=== PATIENT | female | born 1960 | race American Indian/Alaskan Native ===

== ENCOUNTER 2017-08-06 20:26 | Inpatient (IN) | payer MEDICAID ==
[~2017-08-06 20:26] MED LIST: ADRENALIN ONE; INTROPIN DRIP 800 MG/D5W 250 ML IV ONE
[2017-08-06] MEDS: LEVOPHED DRIP 4 MG/NS 250 ML 4 MG/250 ML BAG IV SCH (20:35)
[2017-08-06] MEDS ORDERED: LEVOPHED DRIP 4 MG/NS 250 ML 4 MG/250 ML BAG IV ONE ×2 (20:45→23:27)
[2017-08-06] MEDS ORDERED: VASELINE LIP THERAPY TP PRN (20:50)
--- NOTE | 2017-08-06 21:15 | Emergency Department Report ---
HPI - General Time Seen by Provider: 08/06/17 20:48 - HPI HPI: 56-year-old [place] female presents to the emergency department via EMS from home and cardiac arrest. The patient had just completed radiation therapy today around 5 or 6 PM for her breast cancer. Her daughter got her something to eat and then some dessert and then brought her home. She appeared weak when they arrived to the house so they helped her into a chair and then pulled the chair into the house. Allegedly the patient asked for something to drink and was taking small sips when all of a sudden she started appearing short of breath and went unresponsive. The family was calling EMS and says "it took a while." EMS says that they got the patient about 20-25 minutes prior to presentation to [address] [place] [address] emergency Department. At that time she was in [facility]. They did ACLS protocol including 2 rounds of epinephrine, one of sodium bicarbonate, chest compressions, and the patient was intubated. ED Past Medical Hx - Medications Home Medications: Home Medications Medication Instructions Recorded Confirmed Last Taken Type Anastrozole (Nf) [Arimidex (Nf)] 1 mg PO DAILY 08/07/17 08/07/17 Unknown History Calcium Carbonate/Vitamin D3 1 each PO DAILY 08/07/17 08/07/17 Unknown History [Calcium 600-Vit D3 400 Tablet] Citalopram [celeXA] 10 mg PO QDAY 08/07/17 08/07/17 Unknown History Magnesium 250 mg PO BID 08/07/17 08/07/17 Unknown History Metaxalone [Skelaxin] 800 mg PO QDAY PRN 08/07/17 08/07/17 Unknown History Mirtazapine [Remeron] 15 mg PO HS 08/07/17 08/07/17 Unknown History metroNIDAZOLE [Flagyl] 500 mg PO QDAY 08/07/17 08/07/17 Unknown History traMADol [Ultram] 50 mg PO Q8H PRN 08/07/17 08/07/17 Unknown History ED Review of Systems ROS: Stated complaint: CARDIAC ARREST Other details as noted in HPI Comment: Unobtainable due to pts medical conditions Physical Exam - Physical Exam Physical Exam: GENERAL: Patient is ill-appearing and unresponsive. HENT: Normocephalic. Atraumatic. Patient has moist mucous membranes. There is a ET tube and tube engel in place. EYES: Pupils are fixed and dilated. NECK: Supple. Trachea appears midline. CHEST/LUNGS: There are no spontaneous respirations. There is good chest rise with bag valve ventilation. HEART/CARDIOVASCULAR: There are no spontaneous heart sounds. ABDOMEN: Abdomen is soft. There appears to be some mild abdominal distention. SKIN: Skin is cool but dry. There is an area to the left breast that appears like a ulcerating and fungating mass with very mild purulent appearing discharge. NEURO: Unresponsive. Does not withdraw to painful stimuli. Does not follow any commands. MUSCULOSKELETAL: There is no obvious deformity. There is no evidence of acute injury. No palpable femoral or radial pulses. ED Course - Reevaluation(s) Reevaluation #1: The patient arrived to the emergency department we continued ACLS protocol. She was given a dose of epinephrine as we continued chest compressions. She was placed on the monitor. After about 3 minutes a pulse check and rhythm check was done and the patient appeared to be in sinus rhythm with a palpable femoral pulse. At this point the patient had a low blood pressure on the monitor so dopamine was started while I placed a central line. Once the central line was finished the patient was switched to Levophed. We have just obtained a chest x-ray and blood. Family has been updated and understand she is still critical. 08/06/17 21:16 - ABG Interpretation Ph: [phone] PCO2: 39 PO2: 138 Bicarbonate: 11 Interpretation: metabolic alkalosis, other (lactic acidosis) - Central Line Placement Right Femoral Consent Obtained: emergent situation Patient Placed on Monitor/Pulse Ox: Yes MD Prep: mask, gown, gloves Central Line Prep: Chlorhexidine scrub, sterile drapes applied Ultrasound Used for Placement: No Central Line Lumen Inserted: triple Bloods Obtained for Lab: Yes Central Line Position: good blood return, all ports aspirated, flus, sutured in place with nyl Dressing Applied: Tegaderm, sterile gauze/tape Patient Tolerated Procedure: well Complications: none ED Medical Decision Making - Lab Data Result diagrams: 08/07/17 08:47 08/07/17 17:34 - EKG Data -: EKG Interpreted by Me EKG shows normal: sinus rhythm, axis, intervals, QRS complexes (q waves to septal leads), ST-T waves Rate: tachycardia (102 bpm) - EKG Data When compared to previous EKG there are: previous EKG unavailable Interpretation: other (sinus tachycardia at 102 bpm, Q waves to the septal leads.) - Radiology Data Radiology results: report reviewed, image reviewed interpreted by me: Chest x-ray shows that the ET tube is slightly deep and starting to go towards the right mainstem bronchus. Otherwise the lungs are inflated without any obvious signs of pneumonia or pleural effusions. EXAM: CT HEAD/BRAIN WO CON HISTORY: Unresponsive history of breast cancer TECHNIQUE: Contiguous axial images of the head were obtained without the use of intravenous contrast. PRIORS: none. FINDINGS: There a permeative mass infiltrating the left frontal bone extending into the extra-axial space and scalp. It measures 3.7 cm in AP dimension. There is a large area of low attenuation in the right cerebellar hemisphere. In the there is no evidence of acute intracranial hemorrhage. The ventricles and sulci are prominent consistent with generalized loss of brain substance, greater than expected for age. There is deep white matter lucency consistent with a mild degree of chronic microvascular ischemic disease. There is fluid in the bilateral sphenoid sinuses. The paranasal sinuses were not completely scanned. IMPRESSION: 1. Infiltrative mass in the left frontal bone causing a permeative pattern and extending into the left extra-axial space and overlying scalp. This is concerning for a neoplasm and may be metastatic breast cancer. 2. Low-attenuation lesion in the right cerebellum also suspicious for a mass with surrounding edema. 3. Generalized loss of brain substance greater than expected for age 4. Mild degree of chronic microvascular ischemic disease Further evaluation with MRI without and with contrast is recommended. I gave a verbal report by phone to Dr. Hilliard at 1 a.m. eastern daylight time. Transcribed By: ANIYA Dictated By: SERAFIN FERREIRA MD Electronically Authenticated By: SERAFIN FERREIRA MD Signed Date/Time: 08/07/17 0107 - Medical Decision Making Patient presented to the emergency department as a cardiac arrest. We got return of spontaneous circulation after one round of ACLS in the emergency department, after multiple rounds had been done in route and prior to presentation. The patient started having some hypotension so I placed a central line in the right femoral vein and she was started on pressors. As the labs started to come back, she was found to have a hemoglobin of 6.3 so 2 units of packed red blood cells were ordered. At first the patient needed vasopressin , dopamine and Levophed but when the blood was being transfused the blood pressure seemed to stabilize and we are able to titrate down some of the pressors. The rest of the labs still showed some abnormalities. She has a 23, 000 white count with a left shift, lactic acidosis of 13 that has trended down to 10, renal insufficiency, hyperkalemia with potassium of 6.1 and she has a very elevated d-dimer. Blood cultures were obtained and the patient was treated empirically with some antibiotics. For the hyperkalemia, the patient got insulin, glucose and Kayexalate. Chest x-ray did not show any pneumonia or any other acute processes. CT scan of the head shows concern for infiltrate of left frontal bone mass per meeting and extending into the left frontal space that is concerning for metastatic bony cancer. The patient will be admitted to the ICU for further evaluation and treatment and has been accepted for admission by the hospitalist, Dr Zurita. There has been multiple different family members throughout the evening that have been bedside and I have attempted to update them along the way to the results of the labs, imaging and the plan. - Differential Diagnosis malignancy, [place], PE, sepsis, hypoxemia Critical Care Time: Yes Critical care time in (mins) excluding proc time.: 45 Critical care attestation.: If time is entered above; I have spent that time in minutes in the direct care of this critically ill patient, excluding procedure time. Critical care time spent on this patient and doing her initial evaluation, supervision of ACLS protocol, multiple re-evaluations, ordering and interpretation of labs and imaging, titration of pressors, ordering and administration of medication, discussion with the patient's family. This is independent from and does not include the time spent doing the central line procedure. Critical Care Time: 45 minutes ED Disposition Clinical Impression: Cardiac arrest, Hyperkalemia, Renal insufficiency, Lactic acidosis Breast cancer metastasized to bone Qualifiers: Laterality: unspecified laterality Qualified Code(s): C50.919 - Malignant neoplasm of unspecified site of unspecified female breast Hypotension Qualifiers: Hypotension type: unspecified hypotension type Qualified Code(s): I95.9 - Hypotension, unspecified Leukocytosis Qualifiers: Leukocytosis type: unspecified Qualified Code(s): D72.829 - Elevated white blood cell count, unspecified Anemia Qualifiers: Anemia type: unspecified type Qualified Code(s): D64.9 - Anemia, unspecified Disposition: DC-09 OP ADMIT IP TO THIS HOSP Is pt being admited?: Yes Condition: Critical Time of Disposition: 01:50
[2017-08-06 21:29] LABS: INR 1.33 (0.87-1.13)
[2017-08-06 21:30] LABS: Partial Thromboplastin Time 49.4 Sec. (24.2-36.6)
[2017-08-06 21:32] LABS: Mean Corpuscular HGB Conc 27 % (30-34); Mean Corpuscular Hemoglobin 27 pg (28-32); Mean Corpuscular Volume 98 fl (79-97); Platelet Count 583 K/mm3 (140-440); Red Blood Count 2.36 M/mm3 (3.65-5.03); Red Cell Distribution Width 18.5 % (13.2-15.2)
[2017-08-06 21:33] LABS: Hematocrit 23.1 % (30.3-42.9); Hemoglobin 6.3 gm/dl (10.1-14.3)
[2017-08-06] MEDS ORDERED: NACL 0.9% 1000 ML 1,000 ML IV ONE (21:33)
[2017-08-06 21:38] LABS: Bilirubin,Urine Negative (Negative); Blood,Urine Negative (Negative); Color,Urine Yellow (Yellow); Urobilinogen,Urine < 2.0 mg/dL (<2.0)
[2017-08-06 21:39] LABS: RBC,Urine < 1.0 /HPF (0.0-6.0); WBC,Urine < 1.0 /HPF (0.0-6.0)
[2017-08-06] MEDS ORDERED: NACL 0.9% 500 ML 500 ML IV ONE (21:43)
--- NOTE | 2017-08-06 21:47 | XRay Report ---
FINAL REPORT EXAM: XR CHEST 1V AP HISTORY: ETT placement TECHNIQUE: AP portable view of the chest. PRIORS: None. FINDINGS: There is endotracheal tube in place with the tip in the proximal right mainstem bronchus. There is an NG tube in place with the tip in the stomach. The side port is at the GE junction. The cardiomediastinal silhouette appears normal. The lungs are hypo aerated and there is mild bibasilar subsegmental atelectasis. The bones and soft tissues are unremarkable. IMPRESSION: 1. Endotracheal tube tip is in the proximal right mainstem bronchus 2. NG tube tip is in the stomach and the side port is at the GE junction. Recommend advancement. 3. The lungs are hypo aerated and there is mild bibasilar subsegmental atelectasis I gave a verbal report by phone to Dr. Hilliard at 9:40 p.m. eastern daylight time. He informed me that the endotracheal tube had been repositioned.
[2017-08-06 22:03] LABS: Amphetamine Screen,Urine PRESUMPTIVE NEGATIVE; Benzodiazepines Screen,Urine PRESUMPTIVE NEGATIVE; Cannabinoid Screen,Urine PRESUMPTIVE NEGATIVE; Cocaine Screen,Urine PRESUMPTIVE NEGATIVE; Methadone Screen,Urine PRESUMPTIVE NEGATIVE; Opiate Screen,Urine PRESUMPTIVE NEGATIVE
[2017-08-06 22:05] LABS: Basophils % (Manual) 0 % (0.0-1.8); Eosinophils % (Manual) 0 % (0.0-4.3); Total Cells Counted 100
[2017-08-06 22:06] LABS: Platelet Estimate Consistent w Auto
[2017-08-06 22:07] LABS: Anisocytosis 1+; Poikilocytosis 1+
[2017-08-06 22:33] LABS: Albumin 2.3 g/dL (3.9-5); Calcium 7.9 mg/dL (8.4-10.2)
[2017-08-06] MEDS: Vasostrict 20 UNIT in NACL 0.9% 100 ML IV SCH (22:45)
[2017-08-06] MEDS ORDERED: HumuLIN R IV ONE (22:49)
[2017-08-06] MEDS ORDERED: D50W (25GM) Syringe IV ONE (22:49)
[2017-08-06] MEDS ORDERED: KIONEX PO ONE (22:49)
[2017-08-06] MEDS ORDERED: ZOSYN/NS 4.5GM/100ML 4.5 GM/100 ML VIAL IV ONE (23:00)
[2017-08-06] MEDS ORDERED: CALCIUM GLUCONATE 1,000 MG in NACL 0.9% 100 ML IV ONE (23:00)
[2017-08-06] MEDS ORDERED: INTROPIN DRIP 800 MG/D5W 250 ML 800 MG/250 ML BAG IV ONE (23:54)
[2017-08-07] MEDS ORDERED: fentaNYL DRIP Premix 2,000 MCG/100 ML BAG IV SCH (01:00)
--- NOTE | 2017-08-07 01:12 | Cat Scan Report ---
FINAL REPORT EXAM: CT HEAD/BRAIN WO CON HISTORY: Unresponsive history of breast cancer TECHNIQUE: Contiguous axial images of the head were obtained without the use of intravenous contrast. PRIORS: none. FINDINGS: There a permeative mass infiltrating the left frontal bone extending into the extra-axial space and scalp. It measures 3.7 cm in AP dimension. There is a large area of low attenuation in the right cerebellar hemisphere. In the there is no evidence of acute intracranial hemorrhage. The ventricles and sulci are prominent consistent with generalized loss of brain substance, greater than expected for age. There is deep white matter lucency consistent with a mild degree of chronic microvascular ischemic disease. There is fluid in the bilateral sphenoid sinuses. The paranasal sinuses were not completely scanned. IMPRESSION: 1. Infiltrative mass in the left frontal bone causing a permeative pattern and extending into the left extra-axial space and overlying scalp. This is concerning for a neoplasm and may be metastatic breast cancer. 2. Low-attenuation lesion in the right cerebellum also suspicious for a mass with surrounding edema. 3. Generalized loss of brain substance greater than expected for age 4. Mild degree of chronic microvascular ischemic disease Further evaluation with MRI without and with contrast is recommended. I gave a verbal report by phone to Dr. Hilliard at 1 a.m. eastern daylight time.
[2017-08-07] MEDS ORDERED: ZOFRAN IV PRN (01:57)
[2017-08-07] MEDS ORDERED: TYLENOL PO PRN (01:57)
[2017-08-07] MEDS ORDERED: NACL 0.9% 1000 ML 1,000 ML IV ONE (01:57)
[2017-08-07] MEDS ORDERED: TYLENOL PR PRN (01:57)
[2017-08-07] MEDS ORDERED: SODIUM CHLORIDE FLUSH SYRINGE 10 ML IV PRN (01:57)
[2017-08-07] MEDS ORDERED: NACL 0.9% 1000 ML 1,000 ML IV SCH (02:00)
[2017-08-07] MEDS ORDERED: VANCOMYCIN PHARMACY TO DOSE IV SCH (02:00)
[2017-08-07] MEDS ORDERED: VANCOMYCIN/NS 1 GM/250 ML 1 GM/250 ML BAG IV SCH (02:00)
[2017-08-07] MEDS ORDERED: SODIUM BICARBONATE IV ONE ×2 (02:09→02:14)
[2017-08-07] MEDS ORDERED: NACL 0.9% 1000 ML 1,000 ML ONE (02:13)
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
[2017-08-07] MEDS ORDERED: VANCOMYCIN 1,500 MG in NACL 0.9% 500 ML 500 ML IV ONE (03:00)
[2017-08-07 03:12] LABS: Creatine Kinase MB 16.9 ng/mL (0.0-4.0)
[2017-08-07] MEDS: ARTIFICIAL TEARS OPHTH OINT OU PRN ×2 (03:49→19:57)
--- NOTE | 2017-08-07 07:05 | Cat Scan Report ---
FINAL REPORT EXAM: CT ABDOMEN PELVIS WO CON HISTORY: abd distension, arf , important history of metastatic breast cancer TECHNIQUE: CT images obtained through the Abdomen and Pelvis without contrast. Transaxial,coronal and sagittal reformats are provided. PRIORS: None. FINDINGS: Imaged intrathoracic contents are remarkable for bilateral pulmonary edema, patchy ground-glass and consolidative airspace disease and focal right lower lung airspace disease with air bronchograms. Kidneys are normal in size, axis and position. No hydroureteronephrosis. There is a 2 millimeter nonobstructive stone in the left lower collecting system. The urinary bladder is decompressed with a Keenan catheter. Anteverted uterus. Multiple pelvic phleboliths. Large volume of abdominal and pelvic ascites. Extensive omental and suggested peritoneal nodularity. Lobular contour of the liver. Anterior right hepatic low-density 6 millimeter probably benign cysts. Additional right hepatic low-density lesions are too small to characterize as well. No calcified gallstones with moderate gallbladder distension and layering is sludge. Thickening of the adrenal glands without focal nodularity. With the exception of adjacent ascites, the pancreas and spleen demonstrate an unremarkable noncontrast appearance. Hollow enteric organs are normal in course and caliber. There is fluid throughout much of the colon. No evident obstruction. The appendix is not visualized. No pneumoperitoneum. Aorta is normal in course and caliber. A right femoral line is present. Superficial soft tissues are unremarkable. Sclerotic metastatic lesions are present throughout the pelvis, lumbar spine and sacrum and scattered to a lesser degree within the thoracic spine. IMPRESSION: Sequela of metastatic disease include numerous sclerotic lesions in the axial skeleton and a large volume of abdominal and pelvic ascites with nodularity of the peritoneum and omentum. The patient is at increased risk for bowel ischemia, and there is fluid throughout much of the colon. Correlation with serum lactate and patient's symptoms is requested. No pneumoperitoneum or bowel obstruction identified. Partially imaged lungs demonstrate diffuse patchy airspace disease, pulmonary edema and focal right lower lung consolidation, which may be sequela of infection or metastatic disease. Notification initiated via Kevin support representative immediately following this dictation on 08/07/2017.
--- NOTE | 2017-08-07 07:27 | XRay Report ---
AP CHEST: HISTORY: Endotracheal tube There is poor inspiration. An endotracheal tube terminates within 1 cm of the alicia. This is unchanged since 08/06/17 at 2103 hrs. A nasogastric tube terminates in the proximal stomach just beyond the GE junction. Bilateral perihilar infiltrates have developed since yesterday's exam. This could represent pulmonary edema, infectious infiltrates or areas of atelectasis due to the very poor inspiration. Heart size is grossly normal. Cardiac defibrillator pads overlie the chest. IMPRESSION: Limited exam with very poor inspiration. The endotracheal tube terminates within 1 cm of the alicia. Bilateral perihilar opacities have developed, please see above.
[2017-08-07 08:01] LABS: Creatine Kinase MB 30.3 ng/mL (0.0-4.0)
[2017-08-07] MEDS: PEPCID IV SCH ×2 (08:43→10:44)
[2017-08-07 08:55] LABS: Hematocrit 34.1 % (30.3-42.9); Hemoglobin 10.8 gm/dl (10.1-14.3); Mean Corpuscular HGB Conc 32 % (30-34); Mean Corpuscular Hemoglobin 27 pg (28-32); Mean Corpuscular Volume 85 fl (79-97); Platelet Count 389 K/mm3 (140-440); Red Blood Count 4.02 M/mm3 (3.65-5.03); Red Cell Distribution Width 18.4 % (13.2-15.2)
[2017-08-07 09:09] LABS: Calcium 6.6 mg/dL (8.4-10.2)
[2017-08-07] MEDS ORDERED: HumuLIN R IV STA ×2 (09:34→18:17)
[2017-08-07] MEDS ORDERED: D50W (25GM) Vial IV STA ×2 (09:34→18:18)
--- NOTE | 2017-08-07 09:34 | Event Note ---
Date: 08/07/17 Patient with Breast cancer with metasases, cardio-resp arrest, intubated on Levophed and vasopressin. Also has hyperkalemia, JASE. I have seen and examined her. Consult Oncology, nephrology. Give calcium gluconate, Insulin, dextrose, kayexalate.
[2017-08-07] MEDS ORDERED: D50W (25GM) Syringe IV ONE (09:39)
[2017-08-07] MEDS: SODIUM CHLORIDE FLUSH SYRINGE 10 ML IV SCH (10:04)
[2017-08-07] MEDS ORDERED: CALCIUM GLUCONATE 1,000 MG in NACL 0.9% 100 ML IV ONE (10:15)
[2017-08-07] MEDS: KIONEX PO SCH ×3 (10:26→18:45)
[2017-08-07] MEDS: Vasostrict 20 UNIT in NACL 0.9% 100 ML IV SCH ×2 (13:12→21:24)
[2017-08-07] MEDS: LEVOPHED DRIP 4 MG/NS 250 ML 4 MG/250 ML BAG IV SCH ×4 (14:57→22:25)
[2017-08-07] MEDS ORDERED: D5NS 1,000 ML IV SCH (15:00)
[2017-08-07] MEDS: ZOSYN/NS 2.25 GM/50ML 2.25 GM/50 ML BAG IV SCH ×2 (15:29→17:02)
[2017-08-07] MEDS ORDERED: ARTIFICIAL TEARS OPHTH OINT OU PRN (16:54)
[2017-08-07] MEDS ORDERED: CALCIUM GLUCONATE 2,000 MG in NACL 0.9% 100 ML IV STA (18:16)
[2017-08-07] MEDS ORDERED: D50W (25GM) Syringe IV STA (18:21)
--- NOTE | 2017-08-07 21:57 | Consultation ---
History of Present Illness - Reason for Consult Consult date: 08/07/17 acute renal failure, hyperkalemia Requesting physician: MIA MONTELONGO - History of Present Illness 56-year-old lady with a history of metastatic breast cancer on radiation therapy at [place] brought to the hospital unresponsive. Patient went for radiation therapy and getting home at a hamburger and was taking sips of water when she developed shortness of breath and she became unresponsive. Family members called EMS and on initial evaluation by ELECTRONIC DATA INTERCHANGE SPECIALIST patient was in pulseless electrical activity. ACLS protocol was followed she was brought to the hospital and intubated and started on vasopressors. Patient is on Levophed and vasopressin. She is also getting intravenous fluids. BUN/creatinine high at 52 /2.2 mg/dL. Potassium was high at 6.1 mmol per liter and after medical management it is again elevated at 6.5 mmol per liter. patient is quite acidotic with ph of 7.05 improved to 7.21. lactic acid was 13 and is now improving. Hemoglobin was also quite low at 6.2 g/dl and she received packed red blood cell transfusions. Patient however remains moribund and on evaluation son and niece at the bedside Medications and Allergies Allergies Allergy/AdvReac Type Severity Reaction Status Date / Time Unable to Assess Allergy Unverified 08/06/17 21:42 Home Medications Medication Instructions Recorded Confirmed Last Taken Type Anastrozole (Nf) [Arimidex (Nf)] 1 mg PO DAILY 08/07/17 08/07/17 Unknown History Calcium Carbonate/Vitamin D3 1 each PO DAILY 08/07/17 08/07/17 Unknown History [Calcium 600-Vit D3 400 Tablet] Citalopram [celeXA] 10 mg PO QDAY 08/07/17 08/07/17 Unknown History Magnesium 250 mg PO BID 08/07/17 08/07/17 Unknown History Metaxalone [Skelaxin] 800 mg PO QDAY PRN 08/07/17 08/07/17 Unknown History Mirtazapine [Remeron] 15 mg PO HS 08/07/17 08/07/17 Unknown History metroNIDAZOLE [Flagyl] 500 mg PO QDAY 08/07/17 08/07/17 Unknown History traMADol [Ultram] 50 mg PO Q8H PRN 08/07/17 08/07/17 Unknown History Active Meds: Active Medications Acetaminophen (Tylenol) 650 mg PO Q4H PRN PRN Reason: Pain MILD(1-3)/Fever >100.5/CABA Acetaminophen (Tylenol) 650 mg AL Q4H PRN PRN Reason: Pain MILD(1-3)/Fever >100.5/CABA Famotidine (Pepcid) 20 mg IV DAILY BRAD Last Admin: 08/07/17 10:44 Dose: Not Given Hydrophilic Ointment (Vaseline Lip Therapy) 1 applic TP Q2HR PRN PRN Reason: Dry Lips Last Admin: 08/07/17 03:49 Dose: 1 applic Vasopressin 20 unit/ Sodium (Chloride) 101 mls @ 9.09 mls/hr IV TITR BRAD; Protocol Last Admin: 08/07/17 21:24 Dose: 0.03 units/min, 9.09 mls/hr Dopamine HCl/Dextrose (Intropin Drip 800 Mg/D5w 250 Ml) 800 mg in 250 mls @ 2.892 mls/hr IV TITR ONE; Protocol Stop: 08/10/17 14:20 Last Admin: 08/06/17 21:00 Dose: 2 mcg/kg/min, 2.892 mls/hr Norepinephrine (Levophed Drip 4 Mg/Ns 250 Ml) 4 mg in 250 mls @ 7.5 mls/hr IV TITR BRAD; Protocol Last Admin: 08/07/17 19:57 Dose: 30 mcg/min, 112.5 mls/hr Fentanyl Citrate (Fentanyl Drip Premix) 2,000 mcg in 100 mls @ 3.856 mls/hr IV TITR BRAD; Protocol Last Admin: 08/07/17 00:00 Dose: 3 mcg/kg/hr, 11.567 mls/hr Sodium Chloride (Nacl 0.9% 1000 Ml) 1,000 mls @ 125 mls/hr IV DIRECT BRAD Last Admin: 08/07/17 08:02 Dose: 125 mls/hr Piperacillin Sod/Tazobactam Sod (Zosyn/Ns 2.25 Gm/50ml) 2.25 gm in 50 mls @ 100 mls/hr IV Q6HR BRAD Last Admin: 08/07/17 17:02 Dose: 100 mls/hr Dextrose/Sodium Chloride (D5ns) 1,000 mls @ 75 mls/hr IV DIRECT BRAD Last Admin: 08/07/17 15:29 Dose: 75 mls/hr Multi-Ingred Cream/Lotion/Oil/Oint (Artificial Tears Ophth Oint) 1 applic OU Q4HR PRN PRN Reason: Dry Eye(s) Last Admin: 08/07/17 19:57 Dose: 1 applic Multi-Ingred Cream/Lotion/Oil/Oint (Artificial Tears Ophth Oint) 1 applic OU PRN PRN PRN Reason: Dry Eye(s) Ondansetron HCl (Zofran) 4 mg IV Q4H PRN PRN Reason: Nausea And Vomiting Sodium Chloride (Sodium Chloride Flush Syringe 10 Ml) 10 ml IV BID [facility] Last Admin: 08/07/17 10:04 Dose: 10 ml Sodium Chloride (Sodium Chloride Flush Syringe 10 Ml) 10 ml IV PRN PRN PRN Reason: LINE FLUSH Sodium Polystyrene Sulfonate (Kionex) 30 gm PO Q6HR [facility] Stop: 08/08/17 00:01 Last Admin: 08/07/17 18:45 Dose: 30 gm Vancomycin HCl (Vancomycin Pharmacy To Dose) 1 each IV PKCONSULT [facility] Review of Systems ROS unobtainable: due to endotracheal tube Exam - Vital Signs Vital signs: Vital Signs Pulse Resp Pulse Ox 137 H 14 78 L 08/06/17 20:26 08/06/17 20:26 08/06/17 20:26 - Physical Exam Narrative exam: Middle-aged -Citizen Of [place] female lying in bed intubated on ventilator HEENT: Endotracheal tube intact, Neck: No goiter, no venous distention CVS: S1S2 RRR tachycardic with no murmur, rub or gallop Chest: Coarse breath sounds, use of accessory muscles of respiration Abdomen: Distended, firm, nontender, bowel sounds are present Extremities: No cyanosis, mild edema Genitourinary deferred Skin, Cool Neuro: Unresponsive Results - Lab Results 08/08/17 04:00 08/08/17 04:00 Most recent lab results Calcium 6.6 mg/dL (8.4-10.2) L D 08/07/17 08:47 Assessment and Plan - Patient Problems (1) Acute kidney failure with tubular necrosis Current Visit: Yes Status: Acute Plan to address problem: Acute kidney failure and acute tubular necrosis secondary to hypotension and presumed sepsis. Patient is a poor candidate for renal replacement therapy. She is hemodynamically unstable and has terminal cancer. Continue medical management. Prognosis is grim (2) Hyperkalemia Current Visit: Yes Status: Acute Plan to address problem: medical management of hyperkalemia (3) Severe sepsis with septic shock Current Visit: Yes Status: Acute Plan to address problem: Continue vasopressors and volume resuscitation. Continue Empiric antibiotics and follow cultures (4) Anemia Current Visit: Yes Status: Acute Plan to address problem: Follow-up hemoglobin (5) Lactic acidosis Current Visit: Yes Status: Acute Plan to address problem: Follow-up lactic acid (6) Metastatic breast cancer Current Visit: Yes Status: Acute Plan to address problem: Consideration of palliative care oncologist
[2017-08-07] MEDS ORDERED: SODIUM BICARBONATE 150 MEQ in D5W 1,000 ML IV ONE (22:07)
--- NOTE | 2017-08-08 00:01 | Consultation ---
REFERRING PHYSICIAN: Dr Andersen REASON FOR CONSULTATION: Metastatic breast CA. HISTORY OF PRESENT ILLNESS: The patient is a 56-year-old female, who in 2017, was diagnosed with breast cancer. She had invasive ductal grade 3 malignancy, ER positive, VA positive, HER-2/gera positive. She apparently was initially treated with anastrozole, but had progressive disease. She had progressive disease on her examination in 05/2017 with bony metastases. Her last PET scan in 05/2017 had progression of disease with multiple left breast masses, peritoneal bony mets, pulmonary nodule. She was being treated with palliative radiation therapy, but came to the hospital and being unresponsive. She was hypotensive with leukocytosis, severe anemia. She also was found on her CT head to have infiltrated left frontal bone met with low attenuation lesion in the right cerebellum suspicious for malignancy. The patient is currently on vasopressors, intubated, unresponsive. 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 She has a history of breast cancer as mentioned in the history of present illness. Apparently, there was a breast mass in 2015, biopsied in 2017 and then with evidence of bony mets that were discussed in the notes from [place] with bony mets along with peritoneal mets. PHYSICAL EXAMINATION: GENERAL: The patient is on ventilator. HEENT: Head and ENT examination is unremarkable. BREAST: There is a large left breast mass, which is open with evidence of infection. CHEST: Decreased breath sounds. ABDOMEN: Distended. EXTREMITIES: Has SCDs. LABORATORY WORK: The patient's white count yesterday was 23.6, hemoglobin 6.3, platelets 583,000, and creatinine 2.2. Her white count today was 17.9, hemoglobin 10.8, platelets 389,000. ASSESSMENT: 1. Metastatic breast cancer with widespread metastases. 2. Hypertension, leukocytosis in this patient, possibly related to sepsis. PLAN: At this time, the patient has a widespread metastatic disease from the breast to bone, peritoneum possible brain. At this time, my recommendation would be to keep her comfortable only. Not a candidate for any chemotherapy or any anticancer medications currently. Prognosis is very poor. Discussed the case with the patient's several family members who were present in our family room. JOB# [id number] ALISON/TIESHA
[2017-08-08] MEDS: ZOSYN/NS 2.25 GM/50ML 2.25 GM/50 ML BAG IV SCH ×2 (00:28→06:14)
[2017-08-08] MEDS: KIONEX PO SCH ×4 (00:28→18:57)
[2017-08-08] MEDS: LEVOPHED DRIP 4 MG/NS 250 ML 4 MG/250 ML BAG IV SCH ×7 (01:06→18:41)
--- NOTE | 2017-08-08 02:47 | XRay Report ---
FINAL REPORT EXAM: XR CHEST 1V AP HISTORY: follow up respiratory failure TECHNIQUE: A portable upright view the chest was obtained and compared to the study of 08/06/2017. FINDINGS: There is worsening airspace disease in both lungs. The heart size is normal. The tip of the ET tube is in the proximal right mainstem bronchus and needs to be pulled back 3 cm for optimal positioning. The NG tube is in good position in the stomach. The skeletal structures otherwise do not show any acute changes. IMPRESSION: Worsening bilateral airspace disease noted. ET tube needs to be pulled back 3 cm for optimal positioning.
[2017-08-08 05:07] LABS: Mean Corpuscular HGB Conc 30 % (30-34); Mean Corpuscular Hemoglobin 26 pg (28-32); Mean Corpuscular Volume 89 fl (79-97); Platelet Count 255 K/mm3 (140-440); Red Blood Count 3.92 M/mm3 (3.65-5.03)
[2017-08-08 05:14] LABS: Hematocrit 34.8 % (30.3-42.9); Hemoglobin 10.3 gm/dl (10.1-14.3)
[2017-08-08 05:20] LABS: Calcium 6.8 mg/dL (8.4-10.2)
[2017-08-08 06:11] LABS: Band Neutrophils # (Manual) 10.2 K/mm3; Basophils % (Manual) 0 % (0.0-1.8); Eosinophils % (Manual) 0 % (0.0-4.3); Giant Platelets Rare; Myelocytes # (Manual) 1.3 K/mm3; Nucleated Red Blood Cells 1.5 % (0.0-0.9); Platelet Estimate Consistent w Auto; Total Cells Counted 200
[2017-08-08 06:12] LABS: Anisocytosis 1+
[2017-08-08] MEDS: Vasostrict 20 UNIT in NACL 0.9% 100 ML IV SCH ×2 (07:59→20:25)
[2017-08-08] MEDS: SODIUM CHLORIDE FLUSH SYRINGE 10 ML IV SCH ×2 (08:25→09:34)
--- NOTE | 2017-08-08 08:41 | Progress Note ---
Assessment and Plan Assessment and plan: Acute respiratory failure. Patient is stil intubated. Puklm toileting. Pulm following Breast cancer with metastases. Discussed case with Dr. Ray, Oncologist Acute kidney injury due to ATN, worsening. Cr 3.1 Nephrology consulted, following. Hyperkalemia. Potassium 7.0 today. Ordered calcium, Insulin and Kayexalate again. Potassium keeps rising even after several rounds of calcium gluconate, Insulin, and kayexalate. She is not a good candidate for dialysis leukocytosis due to sepsis, improving Severe Sepsis with shock. She is on 2 pressors. vasopressin and Levophed. Pneumionia,possibly Ascitis DNR. Patient has poor prognosis and has a DNR status. Discussed with family at bedside History Interval history: Patient with metastatic breast cancer, Still intubated, Still on 2 pressors Hospitalist Physical - Physical exam Narrative exam: General: Intubated, HEENT: Normocephalic, atraumatic Neck:supple,no JVD Lungs: Decreased breath sounds, bilateral rales, Heart:S1 and S2 regular, no murmurs, rubs or gallop Abd: soft, mild distension, normal bowel sounds Ext:no edema, no clubbing or cyanosis Neuro: Intubated, Large breast cancer mass with big ulceration - Constitutional Vitals: Temp Pulse Resp BP Pulse Ox 97.4 F L 98 H 22 110/63 88 08/08/17 08:00 08/08/17 07:00 08/08/17 07:00 08/08/17 02:41 08/08/17 07:00 Results - Labs CBC & Chem 7: 08/08/17 04:00 08/08/17 04:00 Labs: Laboratory Last Values WBC 27.9 K/mm3 (4.5-11.0) H 08/08/17 04:00 RBC 3.92 M/mm3 (3.65-5.03) 08/08/17 04:00 Hgb 10.3 gm/dl (10.1-14.3) 08/08/17 04:00 Hct 34.8 % (30.3-42.9) 08/08/17 04:00 MCV 89 fl (79-97) 08/08/17 04:00 MCH 26 pg (28-32) L 08/08/17 04:00 MCHC 30 % (30-34) 08/08/17 04:00 RDW 21.0 % (13.2-15.2) H 08/08/17 04:00 Plt Count 255 K/mm3 (140-440) 08/08/17 04:00 Add Manual Diff Complete 08/08/17 04:00 Total Counted 200 08/08/17 04:00 Seg Neutrophils % Lead [employer] 08/08/17 04:00 Seg Neuts % (Manual) 47.5 % (40.0-70.0) 08/08/17 04:00 Band Neutrophils % 36.5 % 08/08/17 04:00 Lymphocytes % (Manual) 6.5 % (13.4-35.0) L 08/08/17 04:00 Reactive Lymphs % (Man) 0 % 08/08/17 04:00 Monocytes % (Manual) 2.0 % (0.0-7.3) 08/08/17 04:00 Eosinophils % (Manual) 0 % (0.0-4.3) 08/08/17 04:00 Basophils % (Manual) 0 % (0.0-1.8) 08/08/17 04:00 Metamyelocytes % 3.0 % 08/08/17 04:00 Myelocytes % 4.5 % 08/08/17 04:00 Promyelocytes % 0 % 08/08/17 04:00 Blast Cells % 0 % 08/08/17 04:00 Nucleated RBC % 1.5 % (0.0-0.9) H 08/08/17 04:00 Seg Neutrophils # Man 13.3 K/mm3 (1.8-7.7) H 08/08/17 04:00 Band Neutrophils # 10.2 K/mm3 08/08/17 04:00 Lymphocytes # (Manual) 1.8 K/mm3 (1.2-5.4) 08/08/17 04:00 Abs React Lymphs (Man) 0.0 K/mm3 08/08/17 04:00 Monocytes # (Manual) 0.6 K/mm3 (0.0-0.8) 08/08/17 04:00 Eosinophils # (Manual) 0.0 K/mm3 (0.0-0.4) 08/08/17 04:00 Basophils # (Manual) 0.0 K/mm3 (0.0-0.1) 08/08/17 04:00 Metamyelocytes # 0.8 K/mm3 08/08/17 04:00 Myelocytes # 1.3 K/mm3 08/08/17 04:00 Promyelocytes # 0.0 K/mm3 08/08/17 04:00 Blast Cells # 0.0 K/mm3 08/08/17 04:00 WBC Morphology Not Reportable 08/08/17 04:00 Hypersegmented Neuts Not Reportable 08/08/17 04:00 Hyposegmented Neuts Not Reportable 08/08/17 04:00 Hypogranular Neuts Not Reportable 08/08/17 04:00 Smudge Cells Not Reportable 08/08/17 04:00 Toxic Granulation Not Reportable 08/08/17 04:00 Toxic Vacuolation Not Reportable 08/08/17 04:00 Dohle Bodies Not Reportable 08/08/17 04:00 Pelger-Huet Anomaly Not Reportable 08/08/17 04:00 Darell Rods Not Reportable 08/08/17 04:00 Platelet Estimate Consistent w auto 08/08/17 04:00 Clumped Platelets Not Reportable 08/08/17 04:00 Plt Clumps, EDTA Not Reportable 08/08/17 04:00 Large Platelets Not Reportable 08/08/17 04:00 Giant Platelets Rare 08/08/17 04:00 Platelet Satelliting Not Reportable 08/08/17 04:00 Plt Morphology Comment Not Reportable 08/08/17 04:00 RBC Morphology Not Reportable 08/08/17 04:00 Dimorphic RBCs Not Reportable 08/08/17 04:00 Polychromasia Not Reportable 08/08/17 04:00 Hypochromasia Not Reportable 08/08/17 04:00 Poikilocytosis Not Reportable 08/08/17 04:00 Anisocytosis 1+ 08/08/17 04:00 Microcytosis Not Reportable 08/08/17 04:00 Macrocytosis Not Reportable 08/08/17 04:00 Spherocytes Not Reportable 08/08/17 04:00 Pappenheimer Bodies Not Reportable 08/08/17 04:00 Sickle Cells Not Reportable 08/08/17 04:00 Target Cells Not Reportable 08/08/17 04:00 Tear Drop Cells Not Reportable 08/08/17 04:00 Ovalocytes Not Reportable 08/08/17 04:00 Helmet Cells Not Reportable 08/08/17 04:00 [place] Bodies Not Reportable 08/08/17 04:00 [place] Rings Not Reportable 08/08/17 04:00 Valdemar Cells Not Reportable 08/08/17 04:00 Bite Cells Not Reportable 08/08/17 04:00 Crenated Cell Not Reportable 08/08/17 04:00 Elliptocytes Not Reportable 08/08/17 04:00 Acanthocytes (Spur) Not Reportable 08/08/17 04:00 Rouleaux Not Reportable 08/08/17 04:00 Hemoglobin C Crystals Not Reportable 08/08/17 04:00 Schistocytes Not Reportable 08/08/17 04:00 Malaria parasites Not Reportable 08/08/17 04:00 Narendra Bodies Not Reportable 08/08/17 04:00 Hem Pathologist Commnt No 08/08/17 04:00 PT 17.2 Sec. (12.2-14.9) H 08/06/17 20:54 INR 1.33 (0.87-1.13) H 08/06/17 20:54 APTT 49.4 Sec. (24.2-36.6) H 08/06/17 20:54 D-Dimer > 21997 ng/mlDDU (0-234) H 08/06/17 20:54 POC ABG pH 7.212 (7.35-7.45) L 08/07/17 08:22 POC ABG pCO2 45.1 (35-45) H 08/07/17 08:22 POC ABG pO2 63 (80-105) L 08/07/17 08:22 POC ABG HCO3 18.2 08/07/17 08:22 POC ABG Total CO2 20 08/07/17 08:22 POC ABG O2 Sat 86 08/07/17 08:22 POC ABG Base Excess -10 08/07/17 08:22 FiO2 100 % 08/07/17 08:22 Sodium 139 mmol/L (137-145) 08/08/17 04:00 Potassium 7.0 mmol/L (3.6-5.0) H* 08/08/17 04:00 Chloride 102.5 mmol/L (98-107) 08/08/17 04:00 Carbon Dioxide 15 mmol/L (22-30) L 08/08/17 04:00 Anion Gap 29 mmol/L 08/08/17 04:00 BUN 56 mg/dL (7-17) H 08/08/17 04:00 Creatinine 3.1 mg/dL (0.7-1.2) H 08/08/17 04:00 Estimated GFR 19 ml/min 08/08/17 04:00 BUN/Creatinine Ratio 18 % 08/08/17 04:00 Glucose 112 mg/dL (65-100) H 08/08/17 04:00 POC Glucose 105 (70-105) 08/08/17 03:23 Lactic Acid 6.40 mmol/L (0.7-2.0) H* 08/08/17 04:00 Calcium 6.8 mg/dL (8.4-10.2) L 08/08/17 04:00 Total Bilirubin 0.20 mg/dL (0.1-1.2) 08/06/17 20:54 AST 50 units/L (5-40) H 08/06/17 20:54 ALT 15 units/L (7-56) 08/06/17 20:54 Alkaline Phosphatase 87 units/L (35-129) 08/06/17 20:54 Total Creatine Kinase 4163 units/L (30-135) H 08/07/17 07:26 CK-MB (CK-2) 30.3 ng/mL (0.0-4.0) H 08/07/17 07:26 CK-MB (CK-2) Rel Index 0.7 (0-4) 08/07/17 07:26 Troponin T 0.014 ng/mL (0.00-0.029) 08/07/17 07:26 Total Protein 5.2 g/dL (6.3-8.2) L 08/06/17 20:54 Albumin 2.3 g/dL (3.9-5) L 08/06/17 20:54 Albumin/Globulin Ratio 0.8 % 08/06/17 20:54 Urine Color Yellow (Yellow) 08/06/17 21:16 Urine Turbidity Clear (Clear) 08/06/17 21:16 Urine pH 5.0 (5.0-7.0) 08/06/17 21:16 Ur Specific [place] 1.035 (1.003-1.030) H 08/06/17 21:16 Urine Protein 30 mg/dl mg/dL (Negative) 08/06/17 21:16 Urine Glucose (UA) Negative mg/dL (Negative) 08/06/17 21:16 Urine Ketones Negative mg/dL (Negative) 08/06/17 21:16 Urine Blood Negative (Negative) 08/06/17 21:16 Urine Nitrite Negative (Negative) 08/06/17 21:16 Urine Bilirubin Negative (Negative) 08/06/17 21:16 Urine Urobilinogen < 2.0 mg/dL (<2.0) 08/06/17 21:16 Ur Leukocyte Esterase Negative (Negative) 08/06/17 21:16 Urine WBC (Auto) < 1.0 /HPF (0.0-6.0) 08/06/17 21:16 Urine RBC (Auto) < 1.0 /HPF (0.0-6.0) 08/06/17 21:16 U Epithel Cells (Auto) 2.0 /HPF (0-13.0) 08/06/17 21:16 Urine Opiates Screen Presumptive negative 08/06/17 21:16 Urine Methadone Screen Presumptive negative 08/06/17 21:16 Ur Barbiturates Screen Presumptive negative 08/06/17 21:16 Ur Phencyclidine Scrn Presumptive negative 08/06/17 21:16 Ur Amphetamines Screen Presumptive negative 08/06/17 21:16 U Benzodiazepines Scrn Presumptive negative 08/06/17 21:16 Urine Cocaine Screen Presumptive negative 08/06/17 21:16 U Marijuana (THC) Screen Presumptive negative 08/06/17 21:16 Drugs of Abuse Note Disclamer 08/06/17 21:16 Blood Type A POSITIVE 08/06/17 20:54 Antibody Screen Negative 08/06/17 20:54 Crossmatch See Detail 08/06/17 20:54
[2017-08-08] MEDS ORDERED: D50W (25GM) Syringe IV STA (08:56)
[2017-08-08] MEDS ORDERED: HumuLIN R IV STA (08:56)
--- NOTE | 2017-08-08 09:19 | Hem/Onc Progress Note ---
Assessment and Plan Patient with stage IV breast cancer now with hypotension unresponsiveness and on for the pressors. Prognosis is very poor. I have discussed the case with the patient's family members at length yesterday. Agree with DO NOT RESUSCITATE. I have reviewed her records from [place]. Subjective Date of service: 08/08/17 Interval history: Patient on a ventilator. Continues to be hypotensive. On pressors. Objective - Exam Narrative Exam: On ventilator .on pressors - Constitutional Vitals: Last Vital Signs Temp 97.4 F L 08/08/17 08:00 Pulse 92 H 08/08/17 08:45 Resp 20 08/08/17 08:30 BP 40/27 08/08/17 08:45 Pulse Ox 80 L 08/08/17 08:30 - Labs Lab Results: Laboratory Results - last 24 hr 08/07/17 08/07/17 08/07/17 13:08 17:34 17:58 WBC RBC Hgb Hct MCV MCH MCHC RDW Plt Count Add Manual Diff Total Counted Seg Neutrophils % Seg Neuts % (Manual) Band Neutrophils % Lymphocytes % (Manual) Reactive Lymphs % (Man) Monocytes % (Manual) Eosinophils % (Manual) Basophils % (Manual) Metamyelocytes % Myelocytes % Promyelocytes % Blast Cells % Nucleated RBC % Seg Neutrophils # Man Band Neutrophils # Lymphocytes # (Manual) Abs React Lymphs (Man) Monocytes # (Manual) Eosinophils # (Manual) Basophils # (Manual) Metamyelocytes # Myelocytes # Promyelocytes # Blast Cells # WBC Morphology Hypersegmented Neuts Hyposegmented Neuts Hypogranular Neuts Smudge Cells Toxic Granulation Toxic Vacuolation Dohle Bodies Pelger-Huet Anomaly Darell Rods Platelet Estimate Clumped Platelets Plt Clumps, EDTA Large Platelets Giant Platelets Platelet Satelliting Plt Morphology Comment RBC Morphology Dimorphic RBCs Polychromasia Hypochromasia Poikilocytosis Anisocytosis Microcytosis Macrocytosis Spherocytes Pappenheimer Bodies Sickle Cells Target Cells Tear Drop Cells Ovalocytes Helmet Cells [place]rary[place] Bodies [place] Rings [place] Cells Bite Cells Crenated Cell Elliptocytes Acanthocytes (Spur) Rouleaux Hemoglobin C Crystals Schistocytes Malaria parasites Narendra Bodies Hem Pathologist Commnt Sodium Potassium 6.5 H* Chloride Carbon Dioxide Anion Gap BUN Creatinine Estimated GFR BUN/Creatinine Ratio Glucose POC Glucose 68 L 90 Lactic Acid Calcium 08/08/17 08/08/17 08/08/17 00:27 03:23 04:00 WBC RBC Hgb Hct MCV MCH MCHC RDW Plt Count Add Manual Diff Total Counted Seg Neutrophils % Seg Neuts % (Manual) Band Neutrophils % Lymphocytes % (Manual) Reactive Lymphs % (Man) Monocytes % (Manual) Eosinophils % (Manual) Basophils % (Manual) Metamyelocytes % Myelocytes % Promyelocytes % Blast Cells % Nucleated RBC % Seg Neutrophils # Man Band Neutrophils # Lymphocytes # (Manual) Abs React Lymphs (Man) Monocytes # (Manual) Eosinophils # (Manual) Basophils # (Manual) Metamyelocytes # Myelocytes # Promyelocytes # Blast Cells # WBC Morphology Hypersegmented Neuts Hyposegmented Neuts Hypogranular Neuts Smudge Cells Toxic Granulation Toxic Vacuolation Dohle Bodies Pelger-Huet Anomaly Darell Rods Platelet Estimate Clumped Platelets Plt Clumps, EDTA Large Platelets Giant Platelets Platelet Satelliting Plt Morphology Comment RBC Morphology Dimorphic RBCs Polychromasia Hypochromasia Poikilocytosis Anisocytosis Microcytosis Macrocytosis Spherocytes Pappenheimer Bodies Sickle Cells Target Cells Tear Drop Cells Ovalocytes Helmet Cells Mccrary[place] Bodies [place] Rings [place] Cells Bite Cells Crenated Cell Elliptocytes Acanthocytes (Spur) Rouleaux Hemoglobin C Crystals Schistocytes Malaria parasites Narendra Bodies Hem Pathologist Commnt Sodium Potassium Chloride Carbon Dioxide Anion Gap BUN Creatinine Estimated GFR BUN/Creatinine Ratio Glucose POC Glucose 109 H 105 Lactic Acid 6.40 H* Calcium 08/08/17 08/08/17 04:00 04:00 WBC 27.9 H RBC 3.92 Hgb 10.3 Hct 34.8 MCV 89 MCH 26 L MCHC 30 RDW 21.0 H Plt Count 255 Add Manual Diff Complete Total Counted 200 Seg Neutrophils % Powdered Metal Supervisor Seg Neuts % (Manual) 47.5 Band Neutrophils % 36.5 Lymphocytes % (Manual) 6.5 L Reactive Lymphs % (Man) 0 Monocytes % (Manual) 2.0 Eosinophils % (Manual) 0 Basophils % (Manual) 0 Metamyelocytes % 3.0 Myelocytes % 4.5 Promyelocytes % 0 Blast Cells % 0 Nucleated RBC % 1.5 H Seg Neutrophils # Man 13.3 H Band Neutrophils # 10.2 Lymphocytes # (Manual) 1.8 Abs React Lymphs (Man) 0.0 Monocytes # (Manual) 0.6 Eosinophils # (Manual) 0.0 Basophils # (Manual) 0.0 Metamyelocytes # 0.8 Myelocytes # 1.3 Promyelocytes # 0.0 Blast Cells # 0.0 WBC Morphology Not Reportable Hypersegmented Neuts Not Reportable Hyposegmented Neuts Not Reportable Hypogranular Neuts Not Reportable Smudge Cells Not Reportable Toxic Granulation Not Reportable Toxic Vacuolation Not Reportable Dohle Bodies Not Reportable Pelger-Huet Anomaly Not Reportable Darell Rods Not Reportable Platelet Estimate Consistent w auto Clumped Platelets Not Reportable Plt Clumps, EDTA Not Reportable Large Platelets Not Reportable Giant Platelets Rare Platelet Satelliting Not Reportable Plt Morphology Comment Not Reportable RBC Morphology Not Reportable Dimorphic RBCs Not Reportable Polychromasia Not Reportable Hypochromasia Not Reportable Poikilocytosis Not Reportable Anisocytosis 1+ Microcytosis Not Reportable Macrocytosis Not Reportable Spherocytes Not Reportable Pappenheimer Bodies Not Reportable Sickle Cells Not Reportable Target Cells Not Reportable Tear Drop Cells Not Reportable Ovalocytes Not Reportable Helmet Cells Not Reportable Mccrary-[place] Bodies Not Reportable [place] Rings Not Reportable Valdemar Cells Not Reportable Bite Cells Not Reportable Crenated Cell Not Reportable Elliptocytes Not Reportable Acanthocytes (Spur) Not Reportable Rouleaux Not Reportable Hemoglobin C Crystals Not Reportable Schistocytes Not Reportable Malaria parasites Not Reportable Narendra Bodies Not Reportable Hem Pathologist Commnt No Sodium 139 Potassium 7.0 H* Chloride 102.5 Carbon Dioxide 15 L Anion Gap 29 BUN 56 H Creatinine 3.1 H Estimated GFR 19 BUN/Creatinine Ratio 18 Glucose 112 H POC Glucose Lactic Acid Calcium 6.8 L
[2017-08-08] MEDS: PEPCID IV SCH (09:22)
[2017-08-08] MEDS ORDERED: CALCIUM GLUCONATE 2,000 MG in NACL 0.9% 100 ML IV ONE (10:00)
--- NOTE | 2017-08-08 11:40 | Consultation ---
History of Present Illness Consult date: 08/08/17 Requesting physician: MIA MONTELONGO Reason for consult: hypoxemia, other (acute respiratory failure.) History of present illness: 56 y/o female, with stage IV breast cancer with mets to brain and abdomen, admitted with cardiac arrest and acute respiratory failure requiring mechanical ventilation. Patient is unresponsive and agonal on vent. Was maxed on 3 pressors but weaned to off and now bp is marginal again. Family at bedside. I had a long discussion with them yesterday and patient is currently DNR. Past History Past Medical History: other (cancer of the breast) Past Surgical History: Other (unable to obtain) Social history: other (unable to obtain) Family history: other (unalbe to obtain) Medications and Allergies Allergies Allergy/AdvReac Type Severity Reaction Status Date / Time Unable to Assess Allergy Unverified 08/06/17 21:42 Home Medications Medication Instructions Recorded Confirmed Last Taken Type Anastrozole (Nf) [Arimidex (Nf)] 1 mg PO DAILY 08/07/17 08/07/17 Unknown History Calcium Carbonate/Vitamin D3 1 each PO DAILY 08/07/17 08/07/17 Unknown History [Calcium 600-Vit D3 400 Tablet] Citalopram [celeXA] 10 mg PO QDAY 08/07/17 08/07/17 Unknown History Magnesium 250 mg PO BID 08/07/17 08/07/17 Unknown History Metaxalone [Skelaxin] 800 mg PO QDAY PRN 08/07/17 08/07/17 Unknown History Mirtazapine [Remeron] 15 mg PO HS 08/07/17 08/07/17 Unknown History metroNIDAZOLE [Flagyl] 500 mg PO QDAY 08/07/17 08/07/17 Unknown History traMADol [Ultram] 50 mg PO Q8H PRN 08/07/17 08/07/17 Unknown History Active Meds: Active Medications Acetaminophen (Tylenol) 650 mg PO Q4H PRN PRN Reason: Pain MILD(1-3)/Fever >100.5/CABA Acetaminophen (Tylenol) 650 mg ME Q4H PRN PRN Reason: Pain MILD(1-3)/Fever >100.5/CABA Famotidine (Pepcid) 20 mg IV DAILY BRAD Last Admin: 08/08/17 09:22 Dose: 20 mg Hydrophilic Ointment (Vaseline Lip Therapy) 1 applic TP Q2HR PRN PRN Reason: Dry Lips Last Admin: 08/07/17 03:49 Dose: 1 applic Vasopressin 20 unit/ Sodium (Chloride) 101 mls @ 9.09 mls/hr IV TITR BRAD; Protocol Last Admin: 08/08/17 07:59 Dose: 0.03 units/min, 9.09 mls/hr Dopamine HCl/Dextrose (Intropin Drip 800 Mg/D5w 250 Ml) 800 mg in 250 mls @ 2.892 mls/hr IV TITR ONE; Protocol Stop: 08/10/17 14:20 Last Admin: 08/06/17 21:00 Dose: 2 mcg/kg/min, 2.892 mls/hr Norepinephrine (Levophed Drip 4 Mg/Ns 250 Ml) 4 mg in 250 mls @ 7.5 mls/hr IV TITR BRAD; Protocol Last Admin: 08/08/17 10:55 Dose: 30 mcg/min, 112.5 mls/hr Fentanyl Citrate (Fentanyl Drip Premix) 2,000 mcg in 100 mls @ 3.856 mls/hr IV TITR BRAD; Protocol Last Admin: 08/07/17 00:00 Dose: 3 mcg/kg/hr, 11.567 mls/hr Piperacillin Sod/Tazobactam Sod (Zosyn/Ns 2.25 Gm/50ml) 2.25 gm in 50 mls @ 100 mls/hr IV Q8HR BRAD Multi-Ingred Cream/Lotion/Oil/Oint (Artificial Tears Ophth Oint) 1 applic OU Q4HR PRN PRN Reason: Dry Eye(s) Last Admin: 08/07/17 19:57 Dose: 1 applic Ondansetron HCl (Zofran) 4 mg IV Q4H PRN PRN Reason: Nausea And Vomiting Sodium Chloride (Sodium Chloride Flush Syringe 10 Ml) 10 ml IV BID BRAD Last Admin: 08/08/17 09:34 Dose: 10 ml Sodium Chloride (Sodium Chloride Flush Syringe 10 Ml) 10 ml IV PRN PRN PRN Reason: LINE FLUSH Sodium Polystyrene Sulfonate (Kionex) 30 gm PO Q6HR BRAD Stop: 08/08/17 18:01 Last Admin: 08/08/17 09:33 Dose: 30 gm Vancomycin HCl (Vancomycin Pharmacy To Dose) 1 each IV PKCONSULT [facility] Review of Systems ROS unobtainable: due to endotracheal tube, due to mental status Physical Examination Vital signs: Vital Signs Pulse Resp Pulse Ox 137 H 14 78 L 08/06/17 20:26 08/06/17 20:26 08/06/17 20:26 General appearance: appears uncomfortable, other (occassional seizure like activity) Eyes: icteric ENT: other (orally intubated, not on sedation) Ascultation: Bilateral: diminished breath sounds Cardiovascular: regular rate and rhythm Gastrointestinal: hypoactive bowel sounds unable to assess Results - Laboratory Findings CBC and BMP: 08/08/17 04:00 08/08/17 04:00 ABG POC ABG pH 7.212 (7.35-7.45) L 08/07/17 08:22 POC ABG pCO2 45.1 (35-45) H 08/07/17 08:22 POC ABG pO2 63 (80-105) L 08/07/17 08:22 POC ABG HCO3 18.2 08/07/17 08:22 POC ABG Total CO2 20 08/07/17 08:22 POC ABG O2 Sat 86 08/07/17 08:22 PT/INR, D-dimer PT 17.2 Sec. (12.2-14.9) H 08/06/17 20:54 INR 1.33 (0.87-1.13) H 08/06/17 20:54 D-Dimer > 51669 ng/mlDDU (0-234) H 08/06/17 20:54 Abnormal lab findings: Abnormal Labs 08/06/17 08/06/17 08/06/17 20:42 20:54 20:54 WBC 23.6 H RBC 2.36 L Hgb 6.3 L Hct 23.1 L MCV 98 H MCH 27 L MCHC 27 L RDW 18.5 H Plt Count 583 H Seg Neuts % (Manual) 88.0 H Lymphocytes % (Manual) 7.0 L Nucleated RBC % 2.0 H Seg Neutrophils # Man 20.8 H Monocytes # (Manual) 1.2 H PT 17.2 H INR 1.33 H APTT 49.4 H D-Dimer > 64307 H POC ABG pH POC ABG pCO2 POC ABG pO2 Sodium 130 L Potassium 6.1 H* Chloride 89.1 L Carbon Dioxide 13 L BUN 48 H Creatinine 2.2 H Glucose 238 H POC Glucose Lactic Acid Calcium 7.9 L AST 50 H Total Creatine Kinase CK-MB (CK-2) Total Protein 5.2 L Albumin 2.3 L Ur Specific Spruce Crossmatch 08/06/17 08/06/17 08/06/17 20:54 21:16 22:23 WBC RBC Hgb Hct MCV MCH MCHC RDW Plt Count Seg Neuts % (Manual) Lymphocytes % (Manual) Nucleated RBC % Seg Neutrophils # Man Monocytes # (Manual) PT INR APTT D-Dimer POC ABG pH 7.056 L POC ABG pCO2 POC ABG pO2 138 H Sodium Potassium Chloride Carbon Dioxide BUN Creatinine Glucose POC Glucose Lactic Acid Calcium AST Total Creatine Kinase CK-MB (CK-2) Total Protein Albumin Ur Specific Spruce 1.035 H Crossmatch See Detail 08/06/17 08/06/17 08/07/17 23:40 Unknown 02:37 WBC RBC Hgb Hct MCV MCH MCHC RDW Plt Count Seg Neuts % (Manual) Lymphocytes % (Manual) Nucleated RBC % Seg Neutrophils # Man Monocytes # (Manual) PT INR APTT D-Dimer POC ABG pH POC ABG pCO2 POC ABG pO2 Sodium Potassium Chloride Carbon Dioxide BUN Creatinine Glucose POC Glucose Lactic Acid 10.00 H* 13.90 H* 7.00 H* Calcium AST Total Creatine Kinase CK-MB (CK-2) Total Protein Albumin Ur Specific Spruce Crossmatch 08/07/17 08/07/17 08/07/17 02:37 02:38 05:20 WBC RBC Hgb Hct MCV MCH MCHC RDW Plt Count Seg Neuts % (Manual) Lymphocytes % (Manual) Nucleated RBC % Seg Neutrophils # Man Monocytes # (Manual) PT INR APTT D-Dimer POC ABG pH 7.204 L POC ABG pCO2 POC ABG pO2 63 L Sodium Potassium Chloride Carbon Dioxide BUN Creatinine Glucose POC Glucose Lactic Acid 2.60 H* Calcium AST Total Creatine Kinase 1001 H CK-MB (CK-2) 16.9 H Total Protein Albumin Ur Specific Spruce Crossmatch 08/07/17 08/07/17 08/07/17 07:26 07:26 08:22 WBC RBC Hgb Hct MCV MCH MCHC RDW Plt Count Seg Neuts % (Manual) Lymphocytes % (Manual) Nucleated RBC % Seg Neutrophils # Man Monocytes # (Manual) PT INR APTT D-Dimer POC ABG pH 7.212 L POC ABG pCO2 45.1 H POC ABG pO2 63 L Sodium Potassium Chloride Carbon Dioxide BUN Creatinine Glucose POC Glucose Lactic Acid 3.10 H* Calcium AST Total Creatine Kinase 4163 H CK-MB (CK-2) 30.3 H Total Protein Albumin Ur Specific Spruce Crossmatch 08/07/17 08/07/17 08/07/17 08:47 08:47 08:47 WBC 17.9 H RBC Hgb Hct MCV MCH 27 L MCHC RDW 18.4 H Plt Count Seg Neuts % (Manual) Lymphocytes % (Manual) Nucleated RBC % Seg Neutrophils # Man Monocytes # (Manual) PT INR APTT D-Dimer POC ABG pH POC ABG pCO2 POC ABG pO2 Sodium Potassium 6.0 H Chloride Carbon Dioxide 19 L BUN 52 H Creatinine 2.2 H Glucose POC Glucose Lactic Acid 3.20 H* Calcium 6.6 L D AST Total Creatine Kinase CK-MB (CK-2) Total Protein Albumin Ur Specific Spruce Crossmatch 08/07/17 08/07/17 08/08/17 13:08 17:34 00:27 WBC RBC Hgb Hct MCV MCH MCHC RDW Plt Count Seg Neuts % (Manual) Lymphocytes % (Manual) Nucleated RBC % Seg Neutrophils # Man Monocytes # (Manual) PT INR APTT D-Dimer POC ABG pH POC ABG pCO2 POC ABG pO2 Sodium Potassium 6.5 H* Chloride Carbon Dioxide BUN Creatinine Glucose POC Glucose 68 L 109 H Lactic Acid Calcium AST Total Creatine Kinase CK-MB (CK-2) Total Protein Albumin Ur Specific Spruce Crossmatch 08/08/17 08/08/17 08/08/17 04:00 04:00 04:00 WBC 27.9 H RBC Hgb Hct MCV MCH 26 L MCHC RDW 21.0 H Plt Count Seg Neuts % (Manual) Lymphocytes % (Manual) 6.5 L Nucleated RBC % 1.5 H Seg Neutrophils # Man 13.3 H Monocytes # (Manual) PT INR APTT D-Dimer POC ABG pH POC ABG pCO2 POC ABG pO2 Sodium Potassium 7.0 H* Chloride Carbon Dioxide 15 L BUN 56 H Creatinine 3.1 H Glucose 112 H POC Glucose Lactic Acid 6.40 H* Calcium 6.8 L AST Total Creatine Kinase CK-MB (CK-2) Total Protein Albumin Ur Specific Spruce Crossmatch - Diagnostic Findings Chest x-ray: image reviewed Assessment and Plan 56 y/o female with stage IV metastatic breast CA admitted status post cardiac arrest and acute respiratory failure. 1. Overall prognosis is extremely poor. This has been told to the family by Oncology as well as myself. Family aware and understands. She is currently and AND. Systems continue to fail and most recent lactic acid is 9. Most likely she will suffer another cardiac arrest and demise in the next 12-24 hours. Will continue supportive care. If prolonged will have another family meeting to discuss withdrawal and comfort measures. CCT 31 minutes.
--- NOTE | 2017-08-08 13:43 | Progress Note ---
Assessment and Plan - Patient Problems (1) Acute kidney failure with tubular necrosis Current Visit: Yes Status: Acute Plan to address problem: Acute kidney failure and acute tubular necrosis secondary to hypotension and presumed sepsis. Patient is a poor candidate for renal replacement therapy. She is hemodynamically unstable and has terminal cancer. Continue medical management. Prognosis is grim (2) Hyperkalemia Current Visit: Yes Status: Acute Plan to address problem: medical management of hyperkalemia (3) Severe sepsis with septic shock Current Visit: Yes Status: Acute Plan to address problem: Continue vasopressors and volume resuscitation. Continue Empiric antibiotics and follow cultures (4) Anemia Current Visit: Yes Status: Acute Plan to address problem: Follow-up hemoglobin (5) Lactic acidosis Current Visit: Yes Status: Acute Plan to address problem: Follow-up lactic acid (6) Metastatic breast cancer Current Visit: Yes Status: Acute Plan to address problem: Consideration of palliative care oncologist Subjective Date of service: 08/08/17 Principal diagnosis: acute kidney injury, hyperkalemia Interval history: Patient seen lying in bed intubated on ventilator. Patient is unresponsive. There is no family at bedside today Objective - Exam Narrative Exam: Middle-aged -[place] female lying in bed intubated on ventilator HEENT: Endotracheal tube intact, oral gastric tube intact Neck: No goiter, no venous distention CVS: S1S2 RRR tachycardic with no murmur, rub or gallop Chest: Coarse breath sounds, use of accessory muscles of respiration Abdomen: Distended, firm, nontender, bowel sounds are present Extremities: No cyanosis, mild edema Genitourinary deferred Skin, Cool Neuro: Unresponsive - Vital Signs Vital signs: Vital Signs - 12hr 08/08/17 08/08/17 08/08/17 01:50 02:01 02:11 Temperature Pulse Rate 101 H 101 H 101 H Pulse Rate [ From Monitor] Respiratory 10 L 14 17 Rate Blood Pressure 69/49 69/49 69/49 O2 Sat by Pulse 86 86 Oximetry 08/08/17 08/08/17 08/08/17 02:21 02:31 02:41 Temperature Pulse Rate 101 H 99 H 100 H Pulse Rate [ From Monitor] Respiratory 15 25 H 25 H Rate Blood Pressure 69/49 69/49 110/63 O2 Sat by Pulse Oximetry 08/08/17 08/08/17 08/08/17 02:51 03:00 03:01 Temperature Pulse Rate 99 H 99 H Pulse Rate [ 96 H From Monitor] Respiratory 18 21 21 Rate Blood Pressure 131/54 131/54 O2 Sat by Pulse 88 100 Oximetry 08/08/17 08/08/17 08/08/17 03:11 03:21 03:31 Temperature Pulse Rate 98 H 99 H 98 H Pulse Rate [ From Monitor] Respiratory 22 19 20 Rate Blood Pressure 125/103 112/75 112/75 O2 Sat by Pulse 93 100 Oximetry 08/08/17 08/08/17 08/08/17 03:41 03:51 04:01 Temperature Pulse Rate 98 H 99 H 99 H Pulse Rate [ From Monitor] Respiratory 21 20 22 Rate Blood Pressure 73/52 109/71 112/52 O2 Sat by Pulse Oximetry 08/08/17 08/08/17 08/08/17 04:11 04:21 04:31 Temperature Pulse Rate 97 H 98 H 98 H Pulse Rate [ From Monitor] Respiratory 25 H 24 23 Rate Blood Pressure 112/52 128/89 128/89 O2 Sat by Pulse 100 100 89 Oximetry 08/08/17 08/08/17 08/08/17 04:41 04:51 05:00 Temperature Pulse Rate 98 H 98 H Pulse Rate [ 98 H From Monitor] Respiratory 20 26 H 21 Rate Blood Pressure 103/57 103/57 O2 Sat by Pulse 100 88 Oximetry 08/08/17 08/08/17 08/08/17 05:01 05:11 05:21 Temperature Pulse Rate 97 H 97 H 97 H Pulse Rate [ From Monitor] Respiratory 21 21 23 Rate Blood Pressure 109/67 109/67 89/54 O2 Sat by Pulse Oximetry 08/08/17 08/08/17 08/08/17 05:30 05:41 05:51 Temperature Pulse Rate 97 H 97 H 96 H Pulse Rate [ From Monitor] Respiratory 22 21 22 Rate Blood Pressure 95/69 95/69 72/32 O2 Sat by Pulse 68 L 100 Oximetry 08/08/17 08/08/17 08/08/17 06:01 06:11 06:21 Temperature Pulse Rate 96 H 98 H 94 H Pulse Rate [ From Monitor] Respiratory 29 H 26 H 23 Rate Blood Pressure 72/32 72/32 68/41 O2 Sat by Pulse 97 100 Oximetry 08/08/17 08/08/17 08/08/17 06:31 06:41 06:51 Temperature Pulse Rate 94 H 95 H 95 H Pulse Rate [ From Monitor] Respiratory 23 26 H 19 Rate Blood Pressure 68/41 80/62 56/36 O2 Sat by Pulse 92 100 100 Oximetry 08/08/17 08/08/17 08/08/17 07:00 07:01 07:11 Temperature Pulse Rate 95 H 96 H Pulse Rate [ 98 H From Monitor] Respiratory 22 26 H 25 H Rate Blood Pressure 76/55 59/44 O2 Sat by Pulse 88 87 100 Oximetry 08/08/17 08/08/17 08/08/17 07:21 07:31 07:41 Temperature Pulse Rate 96 H 95 H 94 H Pulse Rate [ From Monitor] Respiratory 22 21 26 H Rate Blood Pressure 92/61 92/61 97/77 O2 Sat by Pulse 100 100 72 L Oximetry 08/08/17 08/08/17 08/08/17 07:51 08:00 08:11 Temperature 97.4 F L Pulse Rate 93 H 94 H 94 H Pulse Rate [ From Monitor] Respiratory 22 24 22 Rate Blood Pressure 111/77 111/77 111/77 O2 Sat by Pulse Oximetry 08/08/17 08/08/17 08/08/17 08:21 08:30 08:40 Temperature Pulse Rate 94 H 89 89 Pulse Rate [ From Monitor] Respiratory 20 20 21 Rate Blood Pressure 111/77 75/26 112/57 O2 Sat by Pulse 80 L Oximetry 08/08/17 08/08/17 08/08/17 08:45 08:51 09:00 Temperature Pulse Rate 92 H 92 H Pulse Rate [ 98 H From Monitor] Respiratory 21 22 Rate Blood Pressure 40/27 42/30 O2 Sat by Pulse 88 Oximetry 08/08/17 08/08/17 08/08/17 09:01 09:10 09:21 Temperature Pulse Rate 93 H 94 H 94 H Pulse Rate [ From Monitor] Respiratory 26 H 23 24 Rate Blood Pressure 116/49 117/87 52/35 O2 Sat by Pulse 86 90 Oximetry 08/08/17 08/08/17 08/08/17 09:30 09:41 09:51 Temperature Pulse Rate 94 H 100 H 100 H Pulse Rate [ From Monitor] Respiratory 22 22 25 H Rate Blood Pressure 116/72 120/63 64/46 O2 Sat by Pulse 89 Oximetry 08/08/17 08/08/17 08/08/17 10:00 10:10 10:20 Temperature Pulse Rate 101 H 101 H 100 H Pulse Rate [ 99 H From Monitor] Respiratory 21 24 22 Rate Blood Pressure 113/67 105/59 100/61 O2 Sat by Pulse 88 87 89 Oximetry 08/08/17 08/08/17 08/08/17 10:30 10:40 10:50 Temperature Pulse Rate 99 H 102 H 100 H Pulse Rate [ From Monitor] Respiratory 23 26 H 25 H Rate Blood Pressure 101/65 116/73 119/69 O2 Sat by Pulse 87 87 86 Oximetry 08/08/17 08/08/17 08/08/17 11:00 11:10 11:20 Temperature Pulse Rate 99 H 95 H 94 H Pulse Rate [ 98 H From Monitor] Respiratory 23 22 26 H Rate Blood Pressure 106/65 93/56 47/30 O2 Sat by Pulse 86 82 L 85 Oximetry 08/08/17 08/08/17 08/08/17 11:30 11:40 11:50 Temperature Pulse Rate 94 H 93 H 93 H Pulse Rate [ From Monitor] Respiratory 22 25 H 23 Rate Blood Pressure 48/24 96/60 106/40 O2 Sat by Pulse 88 85 79 L Oximetry 08/08/17 08/08/17 08/08/17 12:00 12:10 12:20 Temperature 97.5 F L Pulse Rate 93 H 91 H 91 H Pulse Rate [ From Monitor] Respiratory 22 22 23 Rate Blood Pressure 116/59 116/59 98/70 O2 Sat by Pulse 93 94 Oximetry 08/08/17 08/08/17 08/08/17 12:30 12:40 12:50 Temperature Pulse Rate 91 H 90 90 Pulse Rate [ From Monitor] Respiratory 21 22 22 Rate Blood Pressure 107/59 104/69 118/68 O2 Sat by Pulse 94 95 90 Oximetry 08/08/17 08/08/17 12:51 13:00 Temperature Pulse Rate 87 90 Pulse Rate [ 98 H From Monitor] Respiratory 25 H Rate Blood Pressure 118/67 116/80 O2 Sat by Pulse 93 Oximetry - Lab 08/08/17 04:00 08/08/17 04:00 Most recent lab results Calcium 6.8 mg/dL (8.4-10.2) L 08/08/17 04:00
[2017-08-08] MEDS ORDERED: ZOSYN/NS 2.25 GM/50ML 2.25 GM/50 ML BAG IV SCH (14:00)
[2017-08-08 22:01] VITALS: BP 108/78
--- NOTE | 2017-08-08 23:28 | Event Note ---
Date: 08/08/17 I was called to come and evaluated patient suspected to have a , on examination patient was lying lifeless on her bed still intubated with mechanical ventilation turned off. The pupils were fixed and dilated and auscultation of the chest reviewed no spontaneous air movement, auscultation of the heart showed no impulses and also there was no palpable apical impulse on the heart. bus monitor showed straight lines on at least 2 leads and patient was pronounced at 10:40 PM.
--- NOTE | 2017-08-09 10:39 | Death Summary ---
Summary - Providers Consults: 08/07/17 01:57 Consult to Physician [CONS] Routine Comment: Consulting Provider: HOA MAHONEY Physician Instructions: Reason For Exam: cc 08/07/17 09:42 Consult to Physician [CONS] Routine Comment: Consulting Provider: NYLA AMRIE Physician Instructions: Reason For Exam: JASE,hyperkalemia Consult to Physician [CONS] Routine Comment: Consulting Provider: BEENA YOU Physician Instructions: Reason For Exam: Breast cancer with mets Attending: MIA MONTELONGO - summary Date of admission: 08/07/17 01:57 Date of : 08/08/17
--- NOTE | 2017-08-09 10:39 | Discharge Summary ---
Providers - Providers Date of Admission: 08/07/17 01:57 Attending physician: MIA MONTELONGO 08/07/17 01:57 Consult to Physician [CONS] Routine Comment: Consulting Provider: HOA MAHONEY Physician Instructions: Reason For Exam: cc 08/07/17 09:42 Consult to Physician [CONS] Routine Comment: Consulting Provider: NYLA MARIE Physician Instructions: Reason For Exam: JASE,hyperkalemia Consult to Physician [CONS] Routine Comment: Consulting Provider: BEENA YOU Physician Instructions: Reason For Exam: Breast cancer with mets Primary care physician: MIA PEREZ Hospitalization Condition: Critical Disposition: DC-30 STILL A PATIENT Core Measure Documentation - Palliative Care Palliative Care/ Comfort Measures: Not Applicable Exam - Constitutional Vitals: Temp Pulse Resp BP Pulse Ox 96.7 F L 54 L 17 108/78 100 08/08/17 20:00 08/08/17 22:00 08/08/17 21:50 08/08/17 21:40 08/08/17 22:00 Plan Follow up with: MIA PEREZ MD [Primary Care Provider] - 3-5 Days
== END 2017-08-08 22:20 | DRG 871 ==
LOC: ED 20:26 → CC1 08-07 01:57
PROVIDERS: ADMIT Internal Medicine; ATTEND Internal Medicine
PROC: 5A1945Z Respiratory Ventilation, 24-96 Consecutive Hours (ICD-10-PCS; principal; 2017-08-07)
PROC: 0BH17EZ Insertion of Endotracheal Airway into Trachea, Via Natural or Artificial Opening (ICD-10-PCS; 2017-08-07)
PROC: 30233N1 Transfusion of Nonautologous Red Blood Cells into Peripheral Vein, Percutaneous Approach (ICD-10-PCS; 2017-08-07)
PROC: 4A033R1 Measurement of Arterial Saturation, Peripheral, Percutaneous Approach (ICD-10-PCS; 2017-08-07)
PROC: 5A12012 Performance of Cardiac Output, Single, Manual (ICD-10-PCS; 2017-08-07)
PROC: 06HY33Z Insertion of Infusion Device into Lower Vein, Percutaneous Approach (ICD-10-PCS; 2017-08-07)
DX: A41.9 Sepsis, unspecified organism (principal); J96.00 Acute respiratory failure, unspecified whether with hypoxia or hypercapnia; R65.21 Severe sepsis with septic shock; N17.0 Acute kidney failure with tubular necrosis; J18.9 Pneumonia, unspecified organism; I46.9 Cardiac arrest, cause unspecified; D64.9 Anemia, unspecified; E87.5 Hyperkalemia; E87.2 Acidosis; F17.210 Nicotine dependence, cigarettes, uncomplicated; F12.90 Cannabis use, unspecified, uncomplicated; Z71.51 Drug abuse counseling and surveillance of drug abuser; Z92.3 Personal history of irradiation; Z82.49 Family history of ischemic heart disease and other diseases of the circulatory system; C79.51 Secondary malignant neoplasm of bone; C78.6 Secondary malignant neoplasm of retroperitoneum and peritoneum; C79.31 Secondary malignant neoplasm of brain; Z66 Do not resuscitate; C50.919 Malignant neoplasm of unspecified site of unspecified female breast; R18.8 Other ascites
CPT/HCPCS: 36415; 36600; 70450; 71045; 74176; 80048; 80053; 80307; 81001; 82140; 82550; 82553; 82803; 82962; 84132; 84484; 85007; 85025; 85027; 85379; 85610; 85730; 86850; 86900; 86901; 86920; 87040; 87070; 87205; 93005; 93010; 93306; 94002; 94003; 99291; J0171; J0610; J1265; J1815; J2543; J3010; J3370; J7030; J7040; J7042; J7070; P9016